=== PATIENT | male | born 1950 | race Caucasian/White ===

== ENCOUNTER 2018-03-05 03:18 | Emergency (ER) | payer OTHER ==
[2018-03-05] MEDS ORDERED: NS 1,000 ML IV ONE (03:23)
--- NOTE | 2018-03-05 03:23 | EDPHY ---
H & P Time Seen by Provider: 03/05/18 03:23 HPI/ROS: HPI CHIEF COMPLAINT: Right flank pain HISTORY OF PRESENT ILLNESS: Very pleasant 67-year-old male, history of kidney stones, and coronary disease without stents, presents emergency room with right flank right lower quadrant pain sudden onset rather sharp stabbing started 2:00 a.m.. It is now 3:30 a.m.. Associated nausea vomiting with this. History of kidney stones in feels very similar. Past Medical History: Coronary disease, kidney stone Past Surgical History: Abdominal surgery in the past cyst removal. 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 Family History: Noncontributory ROS REVIEW OF SYSTEMS: 10 Systems were reviewed and negative with the exception of the elements mentioned in the history of present illness. Exam Constitutional triage nursing summary reviewed, vital signs reviewed, awake/ alert. Eyes normal conjunctivae and sclera, EOMI, PERRLA. HENT normal inspection, atraumatic, moist mucus membranes, no epistaxis, neck supple/ no meningismus, no raccoon eyes. Respiratory clear to auscultation bilaterally, normal breath sounds, no respiratory distress, no wheezing. Cardiovascular rate normal, regular rhythm, no murmur, no edema, distal pulses normal. Gastrointestinal soft, non-tender, no rebound, no guarding, normal bowel sounds, no distension, no pulsatile mass. Genitourinary no CVA tenderness. Musculoskeletal no midline vertebral tenderness, full range of motion, no calf swelling, no tenderness of extremities, no meningismus, good pulses, neurovascularly intact. Skin pink, warm, & dry, no rash, skin atraumatic. Neurologic awake, alert and oriented x 3, AAOx3, moves all 4 extremities equally, motor intact, sensory intact, CN II-XII intact, normal cerebellar, normal vision, normal speech. Psychiatric normal mood/affect. Heme/Lymph/Immune no lymphadenopathy. Differential diagnosis includes but is not limited to and in no particular order : Bowel obstruction, appendicitis, gallbladder disease, diverticulitis, colitis , enteritis, perforated viscus, gastritis, GERD, esophagitis, urinary tract infection, pyelonephritis, kidney stones Medical Decision Making: Plan for this patient IV establishment IV fluid bolus , IV fentanyl for pain control, CT scan abdomen pelvis without contrast for right-sided flank pain. Urinalysis. Basic blood work. Re-evaluate. Will give Toradol if creatinine is normal. Re-evaluation: CT scan abdomen pelvis without contrast for right-sided flank pain shows a 6 x 5 x 4 distal right UVJ stone. Called to me by Dr. Wilder. 0505: Reviewed patient's workup including blood work, urinalysis, CT scan. Went over the patient had a kidney stone. Distal ureter. Have given a referral to Urology. Prescription provided for Flomax, [place], Zofran. Return precautions discussed with the patient. At 5:45 a.m. The patient is feeling comfortable. No pain. Resting comfortably. Received IV Dilaudid, IV Toradol. Feeling much better. Would like to go home. Return precautions discussed. Source: Patient Constitutional: Initial Vital Signs Temperature (C) 36.8 C 03/05/18 03:25 Heart Rate 69 03/05/18 03:25 Respiratory Rate 18 03/05/18 03:25 Blood Pressure 158/98 H 03/05/18 03:25 O2 Sat (%) 97 03/05/18 03:25 O2 Delivery Mode Room Air Allergies/Adverse Reactions: No Known Allergies Allergy (Unverified 04/27/10 11:26) Home Medications: Medication Instructions Recorded Tamsulosin HCl [Flomax] 0.4 mg PO DAILY #5 cap 04/27/10 Red Yeast Rice 05/06/11 Hydrocodone/APAP 5/325 [[place] 1 - 2 tab PO Q4H PRN #10 tab 03/05/18 5/325] Ondansetron HCl [Zofran] 4 mg PO Q4-6PRN PRN #10 tablet 03/05/18 Tamsulosin HCl [Flomax] 0.4 mg PO DAILY #10 cap 03/05/18 Medical Decision Making - Data Points Laboratory Results: Laboratory Results 03/05/18 03:30 03/05/18 03:30 03/05/18 03/05/18 03/05/18 05:27 05:00 03:30 WBC RBC Hgb Hct MCV MCH MCHC RDW Plt Count MPV Neut % (Auto) Lymph % (Auto) [place] % (Auto) Eos % (Auto) Baso % (Auto) Nucleat RBC Rel Count Absolute Neuts (auto) Absolute Lymphs (auto) Absolute Monos (auto) Absolute Eos (auto) Absolute Basos (auto) Absolute Nucleated RBC Immature Gran % Immature Gran # PT INR APTT VBG Lactic Acid 1.4 mmol/L mmol/L (0.7-2.1) Sodium 141 mEq/L mEq/L (135-145) Potassium 3.8 mEq/L mEq/L (3.3-5.0) Chloride 110 mEq/L mEq/L (97-110) Carbon Dioxide 25 mEq/l mEq/l (22-31) Anion Gap 6 mEq/L L mEq/L (8-16) BUN 24 mg/dL H mg/dL (7-23) Creatinine 1.0 mg/dL mg/dL (0.7-1.3) Estimated GFR > 60 Glucose 119 mg/dL H mg/dL (70-100) Calcium 9.3 mg/dL mg/dL (8.5-10.4) Total Bilirubin 0.5 mg/dL mg/dL (0.1-1.4) Conjugated Bilirubin 0.1 mg/dL mg/dL (0.0-0.5) Unconjugated Bilirubin 0.4 mg/dL mg/dL (0.0-1.1) AST 26 IU/L IU/L (17-59) ALT 35 IU/L IU/L (21-72) Alkaline Phosphatase 53 IU/L IU/L (38-126) Total Protein 6.2 g/dL L g/dL (6.3-8.2) Albumin 3.9 g/dL g/dL (3.5-5.0) Lipase 223 IU/L IU/L (23-300) Urine Color Pending Urine Appearance Pending Urine pH Pending Ur Specific [place] Pending Urine Protein Pending Urine Ketones Pending Urine Blood Pending Urine Nitrate Pending Urine Bilirubin Pending Urine Urobilinogen Pending Ur Leukocyte Esterase Pending Urine Glucose Pending 03/05/18 03/05/18 03:30 03:30 WBC 5.48 10^3/uL 10^3/uL (3.80-9.50) RBC 4.69 10^6/uL 10^6/uL (4.40-6.38) Hgb 14.6 g/dL g/dL (13.7-17.5) Hct 41.9 % % (40.0-51.0) MCV 89.3 fL fL (81.5-99.8) MCH 31.1 pg pg (27.9-34.1) MCHC 34.8 g/dL g/dL (32.4-36.7) RDW 13.2 % % (11.5-15.2) Plt Count 199 10^3/uL 10^3/uL (150-400) MPV 9.9 fL fL (8.7-11.7) Neut % (Auto) 46.0 % % (39.3-74.2) Lymph % (Auto) 35.0 % % (15.0-45.0) [place] % (Auto) 15.0 % H % (4.5-13.0) Eos % (Auto) 3.1 % % (0.6-7.6) Baso % (Auto) 0.7 % % (0.3-1.7) Nucleat RBC Rel Count 0.0 % % (0.0-0.2) Absolute Neuts (auto) 2.52 10^3/uL 10^3/uL (1.70-6.50) Absolute Lymphs (auto) 1.92 10^3/uL 10^3/uL (1.00-3.00) Absolute Monos (auto) 0.82 10^3/uL H 10^3/uL (0.30-0.80) Absolute Eos (auto) 0.17 10^3/uL 10^3/uL (0.03-0.40) Absolute Basos (auto) 0.04 10^3/uL 10^3/uL (0.02-0.10) Absolute Nucleated RBC 0.00 10^3/uL 10^3/uL (0-0.01) Immature Gran % 0.2 % % (0.0-1.1) Immature Gran # 0.01 10^3/uL 10^3/uL (0.00-0.10) PT 12.2 SEC SEC (12.0-15.0) INR 0.88 (0.83-1.16) APTT 23.3 SEC SEC (23.0-38.0) VBG Lactic Acid Sodium Potassium Chloride Carbon Dioxide Anion Gap BUN Creatinine Estimated GFR Glucose Calcium Total Bilirubin Conjugated Bilirubin Unconjugated Bilirubin AST ALT Alkaline Phosphatase Total Protein Albumin Lipase Urine Color Urine Appearance Urine pH Ur Specific [place] Urine Protein Urine Ketones Urine Blood Urine Nitrate Urine Bilirubin Urine Urobilinogen Ur Leukocyte Esterase Urine Glucose Medications Given: Discontinued Medications Fentanyl (Sublimaze) 50 mcg IVP EDNOW ONE Stop: 03/05/18 03:38 Last Admin: 03/05/18 03:44 Dose: 50 mcg Sodium Chloride (Ns) 1,000 mls @ 0 mls/hr IV EDNOW ONE; Wide Open PRN Reason: Protocol Stop: 03/05/18 03:24 Last Admin: 03/05/18 03:44 Dose: 1,000 mls Ketorolac Tromethamine (Toradol) 15 mg IVP EDNOW ONE Stop: 03/05/18 04:02 Last Admin: 03/05/18 04:31 Dose: 15 mg Ondansetron HCl (Zofran) 4 mg IVP EDNOW ONE Stop: 03/05/18 03:38 Last Admin: 03/05/18 03:45 Dose: 4 mg Departure - Departure Disposition: Home, Routine, Self-Care Clinical Impression: Kidney stone on right side Condition: Good Instructions: Kidney Stones (ED) Additional Instructions: 1. Drink lots of fluids. 2. Return to the emergency room if you have any worsening symptoms questions or concerns. Referrals: Guille Webb MD [Primary Care Provider] - As per Instructions Jazz Chinchilla MD [Medical Doctor] - As per Instructions Prescriptions: Hydrocodone/APAP 5/325 [[place] 5/325] 1 - 2 tab PO Q4H PRN #10 tab PRN Reason: Pain, Moderate Ondansetron HCl [Zofran] 4 mg PO Q4-6PRN PRN #10 tablet PRN Reason: Nausea/Vomiting, Use 1st Tamsulosin HCl [Flomax] 0.4 mg PO DAILY #10 cap
[2018-03-05] MEDS ORDERED: fentaNYL 100 MCG/2 ML INJ IVP ONE (03:37)
[2018-03-05] MEDS ORDERED: ONDANSETRON 4 MG/2 ML VIAL IVP ONE (03:37)
[2018-03-05 03:46] LABS: PLATELET COUNT 199 10^3/uL (150-400)
[2018-03-05 03:55] LABS: INR 0.88 (0.83-1.16); PROTIME(PATIENT) 12.2 SEC (12.0-15.0)
[2018-03-05] MEDS ORDERED: KETOROLAC 15 MG/1 ML SDV IVP ONE (04:01)
[2018-03-05 06:29] VITALS: BP 120/78
== END 2018-03-05 06:28 | disposition home or self-care (01) ==
DX: N20.1 Calculus of ureter (principal); R11.2 Nausea with vomiting, unspecified; E86.9 Volume depletion, unspecified
CPT/HCPCS: 74176; 96361; 96374; 96375; 99285; J1885; J2405; J3010

== ENCOUNTER → 2018-04-05 | Outpatient (CLI) | payer OTHER | LOC: FIMAGING 12:39 | PROVIDERS: ATTEND Specialist | DX: N20.0 Calculus of kidney (principal); I87.8 Other specified disorders of veins ==

== ENCOUNTER → 2018-04-13 | Outpatient (CLI) | payer OTHER, MEDICARE ==
[~2018-04-13] MED LIST: IOPAMIDOL (ISOVUE-300) 150 ML BTL ONE
== END ==
LOC: FIMAGING 15:49
PROVIDERS: ATTEND Specialist
DX: N20.1 Calculus of ureter (principal); N28.9 Disorder of kidney and ureter, unspecified; K87 Disorders of gallbladder, biliary tract and pancreas in diseases classified elsewhere; N40.0 Benign prostatic hyperplasia without lower urinary tract symptoms
CPT/HCPCS: 74178; Q9967

== ENCOUNTER 2018-09-23 11:16 | Emergency (ER) | payer OTHER, MEDICARE ==
--- NOTE | 2018-09-23 11:24 | EDPHY ---
General Time Seen by Provider: 09/23/18 11:24 Narrative: CLINICAL IMPRESSION: Acute Urinary retention ASSESSMENT/PLAN: Patient is a 67 year old male with a history of known bladder stone and BPH, presents with acute urinary retention. Patient is afebrile, he is uncomfortable appearing however not toxic appearing. His vitals were reviewed and no findings to suggest sepsis or systemic illness. Patient's abdomen was soft, mild tenderness in the suprapubic region without rebound or guarding; no evidence of a surgical abdomen. Bladder scan revealed >350 mL PRV on initial exam. History and physical examination today is consistent with acute urinary retention. Patient was treated with a [place] catheter and a large amount of urine was returned- >650 mL clear yellow urine. UA with no blood, leuks, nitrites or bacteria. There is no evidence of infected stone, UTI or pyelonephritis. I suspect his symptoms today are secondary to intermittently obstructing stone at bladder neck. All symptoms resolved with the Medina catheter placement. >650 ml clear yellow urine immediately returned. He will keep medina in place until follow-up with his Urologist Dr. Banda. On repeat exam he is well appearing, reports he is feeling much better. His abdomen is soft with no tenderness to palpation. Conservative return precautions discussed - he will return for fever, recurrent abdominal pain, recurrent urinary retention or for any other concerning symptom. Patient verbalizes understanding and is in agreement with plan. DIFFERENTIAL DX: Differential includes but not limited to BPH, urethral obstruction, bladder neck obstruction, UTI CHIEF COMPLAINT: Acute Urinary retention HPI: Patient is a 67 year old male with a known bladder stone presents with acute urinary retention. Patient reports kidney stone diagnosis this past June, he believes that he passed the stone at that time. He reported passed the stone into his bladder in June and this has been followed since primarily by his PCP. He believes the stone in his bladder is approximately 5 mm. 12 hours ago he started to experience difficulty with urination, significantly decreased output which is worsening as well as feeling of urgency and frequency. He is experiencing some penile pain at times however denies dysuria or hematuria. He is experiencing mild suprapubic discomfort, denies significant abdominal pain. He denies and flank pain. Appetite is normal, he has had no fever, nausea, vomiting, CP or SOB. BM are normal. PMH: BPH, renal colic, known bladder stone Family History: Not contributory Social History: Denies smoking REVIEW OF SYSTEMS: All other systems negative Constitutional: No fever, no chills, appetite change. Eyes: No discharge, vision change ENT: No sore throat, congestion, ear pain. Cardiovascular: No chest pain, no palpitations. Respiratory: No cough, no shortness of breath. Gastrointestinal: Suprapubic pain, No vomiting or diarrhea. Genitourinary: Urinary retention. No hematuria, dysuria, flank pain, pelvic pain. Musculoskeletal: No back pain, joint swelling, joint pain, myalgias. Skin: No rashes, color change. Neurological: No headache, dizziness, weakness. PHYSICAL EXAM: General Appearance: Alert, uncomfortable appearing however not toxic appearing. HENT: Normocephalic, atraumatic. Bilateral external ears are normal. Bilateral tympanic membranes are normal with pearly silva reflex. Nares are clear, mucosa is pink. Oropharynx is clear, uvula is midline. There is no tonsillar enlargement or exudate. The dentition is normal. Eyes: PERRLA, EOMI. Conjunctiva pink, no pallor or injection. Neck: Supple, nontender, no lymphadenopathy, no midline pain, FROM. Respiratory: There are no retractions, lungs are clear to auscultation. Cardiac: Regular rate and rhythm, no murmurs or gallops. Gastrointestinal: Abdomen is soft, bowel sounds normal, no masses/hernia. Mild suprapubic tenderness to palpation, no rigidity, guarding or focal peritoneal findings. Neurological: Alert and oriented x 3, CN 2-12 grossly intact, normal gait no ataxia, DTR's intact, normal sensation and strength. Skin: Warm, dry, no rashes, no nodules on palpation. Musculoskeletal: Extremities are symmetrical, full range of motion, no tenderness, deformity, swelling, or erythema. Psychiatric: Patient is oriented X 3, there is no agitation. MEDICAL DECISION MAKING: Patient was seen independently. Secondary supervising physician at time of evaluation was Dr. Faust, he did not evaluate this patient. Diagnosis: Acute urinary retention. New, requires workup Summary: See Assessment and Plan for summary of ED visit Clinical lab tests: ordered / reviewed. Independent visualization of images, tracing, or specimens: Yes. Decision to obtain medical records or history from someone other than the patient: No Review / Summarize previous medical records: Yes Discussed patient with another provider: Yes, Dr. Faust Patient Progress: Stable, discharge. - History Smoking Status: Never smoked - Objective Vital Signs: Initial Vital Signs Temperature (C) 36.4 C 09/23/18 11:20 Heart Rate 69 09/23/18 11:20 Respiratory Rate 18 09/23/18 11:20 Blood Pressure 129/84 H 09/23/18 11:20 O2 Sat (%) 99 09/23/18 11:20 O2 Delivery Mode Room Air Allergies/Adverse Reactions: No Known Allergies Allergy (Unverified 04/27/10 11:26) Home Medications: Medication Instructions Recorded Cardura 09/23/18 Welchol 09/23/18 Laboratory Results: 09/23/18 11:30 Urine Color YELLOW Urine Appearance CLEAR Urine pH 6.0 (5.0-7.5) Ur Specific [place] 1.011 (1.002-1.030) Urine Protein NEGATIVE (NEGATIVE) Urine Ketones NEGATIVE (NEGATIVE) Urine Blood NEGATIVE (NEGATIVE) Urine Nitrate NEGATIVE (NEGATIVE) Urine Bilirubin NEGATIVE (NEGATIVE) Urine Urobilinogen NEGATIVE EU EU (0.2-1.0) Ur Leukocyte Esterase NEGATIVE (NEGATIVE) Urine Glucose NEGATIVE (NEGATIVE) Medications Given: Discontinued Medications Lidocaine (Uroject Lidocaine 2% Jelly) 20 ml UR EDNOW ONE Stop: 09/23/18 12:22 Last Admin: 09/23/18 12:27 Dose: 20 ml Departure - Departure Disposition: Home, Routine, Self-Care Clinical Impression: Urinary retention Condition: Good Instructions: Urinary Retention in Men (ED) Additional Instructions: DISCHARGE INSTRUCTIONS FROM YOUR DOCTOR Thank you for visiting our emergency department today. Please keep in mind that discharge from the emergency department does not mean that there is nothing wrong - it simply means that we have not identified an emergency condition that requires further evaluation or treatment in the hospital. Please follow-up with Dr. Melouk at out by neurology as we discussed. Your urine showed no evidence of blood or infection. Please keep your Medina in place until follow-up with Urology. Return to the emergency department for fever, nausea, vomiting, abdominal pain or for any other concerning symptom. People present with illnesses and injuries in different ways, and it is always possible that we have missed something. You may always return for re-evaluation if symptoms worsen or if they are not improving or if you develop new/different symptoms. Again, thank you for choosing our emergency department. We hope that you feel better. Referrals: Guille Webb MD [Primary Care Provider] - As per Instructions Leslie Banda MD [Medical Doctor] - As per Instructions (Please call Urology as we discussed tomorrow morning to schedule follow-up.)
[2018-09-23] MEDS ORDERED: LIDOCAINE 2% JELLY 20 ML (UROJECT) UR ONE (12:21)
[2018-09-23 13:39] VITALS: BP 124/81
== END 2018-09-23 13:39 | disposition home or self-care (01) ==
PROC: 0T9B70Z Drainage of Bladder with Drainage Device, Via Natural or Artificial Opening (ICD-10-PCS; principal; 2018-09-23)
PROC: 4A0D7LZ Measurement of Urinary Volume, Via Natural or Artificial Opening (ICD-10-PCS; 2018-09-23)
DX: R33.9 Retention of urine, unspecified (principal)

== ENCOUNTER 2018-10-11 07:26 | Observation (INO) | payer OTHER, MEDICARE ==
[2018-10-11] MEDS ORDERED: levOFLOXACIN 500 MG/DEXTROSE 100 ML IV ONE (07:42)
[2018-10-11] MEDS ORDERED: levOFLOXACIN 500 MG/DEXTROSE/100 ML BAG IV ONE (08:04)
[2018-10-11] MEDS ORDERED: LR 1,000 ML IV SCH (08:30)
--- NOTE | 2018-10-11 08:33 | PDHPUP ---
History & Physical Update H&P update statement: This history and physical update is based on an assessment of the patient which was completed after admission or registration (within 24 hours), but prior to the surgery/procedure. H&P update: no change in patient's condition since H&P completed
[2018-10-11] MEDS ORDERED: MIDAZOLAM 2 MG/2 ML VIAL ONE (08:58)
[2018-10-11] MEDS ORDERED: MIDAZOLAM 2 MG/2 ML VIAL IVP ONE (08:59)
--- NOTE | 2018-10-11 08:59 | PDANEPAE ---
ANE Past Medical History - Cardiovascular History Hx Hypertension: No Hx Arrhythmias: No Hx Chest Pain: No Hx Coronary Artery / Peripheral Vascular Disease: No Hx CHF / Valvular Disease: No Hx Palpitations: No - Pulmonary History Hx COPD: No Hx Asthma/Reactive Airway Disease: No Hx Recent Upper Respiratory Infection: No Hx Oxygen in Use at Home: No Hx Sleep Apnea: No Sleep Apnea Screening Result - Last Documented: Negative - Neurologic History Hx Cerebrovascular Accident: No Hx Seizures: No Hx Dementia: No - Endocrine History Hx Diabetes: No Hypothyroid: No Hyperthyroid: No Obesity: no - Renal History Hx Renal Disorders: No Renal History Comment: KIDNEY STONES - Liver History Hx Hepatic Disorders: No - Neurological & Psychiatric Hx Hx Neurological and Psychiatric Disorders: No - Cancer History Hx Cancer: No - Congenital Disorder History Hx Congenital Disorders: No - GI History GERD: no Hx Gastrointestinal Disorders: No Gastrointestinal History Comment: ULCERS/GASTRITIS IN PAST - Other Health History Other Health History: NEG - Chronic Pain History Chronic Pain: No - Surgical History Prior Surgeries: T & A. LITHOTRIPSY. OSTEOCHONDROMA L DISTAL FEMUR. PARAGANGLIONA - ABD. C SPINE DISC REPLACEMENTS. LASER TURP ANE Review of Systems Review of Systems: - Exercise capacity Exercise capacity: >=4 METS METS (RN): 6 METS ANE Patient History - Allergies Allergies/Adverse Reactions: No Known Allergies Allergy (Verified 10/05/18 13:32) - Home Medications Home Medications: Colesevelam HCl [Welchol (*)] 3 tab PO BID 09/23/18 [Last Taken 10/10/18] Tamsulosin HCl [Flomax 0.4 MG (*)] 0.4 mg PO DAILY 10/03/18 [Last Taken 10/10/18 ] Multivitamins W-Minerals [Thera M Plus Tablet (*)] 1 each PO DAILY 10/05/18 [ Last Taken 10/09/18] - NPO status NPO Since - Liquids (Date): 10/10/18 NPO Since - Liquids (Time): 22:00 NPO Since - Solids (Date): 10/10/18 NPO Since - Solids (Time): 19:30 - Anes Hx Hx Anesthesia Complications (with details): difficulty coming out after acdf - Smoking Hx Smoking Status: Never smoked - Alcohol Use Alcohol Use: Rarely - Family Anes Hx Family Anes Hx: neg - N/A Family Hx Anesthesia Complications: NEG ANE Labs/Vital Signs - Vital Signs Blood Pressure: 128/72 Heart Rate: 64 Respiratory Rate: 18 O2 Sat (%): 96 Height: 182.88 cm Weight: 79.379 kg ANE Physical Exam - Airway Neck exam: FROM Mallampati Score: Class 2 Mouth exam: normal dental/mouth exam - Pulmonary Pulmonary: no respiratory distress, no rales or rhonchi, clear to auscultation - Cardiovascular Cardiovascular: regular rate and rhythym, no murmur, rub, or gallop - ASA Status ASA Status: II ANE Anesthesia Plan Anesthesia Plan: spinal Total IV Anesthesia: No
[2018-10-11] MEDS ORDERED: fentaNYL 100 MCG/2 ML INJ ONE (09:03)
[2018-10-11] MEDS ORDERED: PROPOFOL/EMULSION 500 MG/50 ML BOTTLE IV ONE (09:03)
[2018-10-11] MEDS ORDERED: LIDOCAINE 2% 2 ML INJ ONE ×2 (09:03)
[2018-10-11] MEDS ORDERED: BUPIVACAINE/DEXTROSE 7.5MG/ML 2 ML SPINAL AMP SP ONE (09:07)
[2018-10-11] MEDS ORDERED: ONDANSETRON 4 MG/2 ML VIAL IVP PRN ×2 (09:52→11:34)
[2018-10-11] MEDS ORDERED: PROMETHAZINE HCL 25 MG/ML INJ IVP PRN ×2 (09:52→11:34)
[2018-10-11] MEDS ORDERED: LR 500 ML IV PRN (09:52)
[2018-10-11] MEDS ORDERED: PHENYLEPHRINE HCL 100 MCG/ML SYR IVP PRN (09:52)
[2018-10-11] MEDS ORDERED: NALOXONE HCL 0.4 MG/ML INJ IVP PRN (09:52)
[2018-10-11] MEDS ORDERED: PHENYLEPHRINE HCL 100 MCG/ML SYR ONE (09:57)
[2018-10-11] MEDS ORDERED: PROPOFOL 200 MG/20 ML VIAL ONE (10:42)
--- NOTE | 2018-10-11 11:33 | POSTOPPROG ---
Post Op Note Date of Operation: 10/11/18 Surgeon: Leslie Banda (# [id number]) Anesthesia: Spinal Pre-op Diagnosis: BPH w/ obstruction Post-op Diagnosis: BPH w/ obstruction Procedure: TURP Findings: See op note Inf/Abcess present in the surg proc area at time of surgery?: No EBL: Minimal (25 cc) Complications: None Specimen(s): Prostate
[2018-10-11] MEDS ORDERED: HYDROCODONE/APAP 5/325 TAB PO PRN (11:34)
[2018-10-11] MEDS ORDERED: OPIUM/BELLADONNA ALKALO SUPP PR PRN (11:34)
[2018-10-11] MEDS ORDERED: ZOLPIDEM TARTRATE 5 MG TAB PO PRN (11:35)
[2018-10-11] MEDS ORDERED: D5W 1/2 NS 1,000 ML IV SCH (11:45)
[2018-10-11] MEDS ORDERED: LORazepam 0.5 MG TAB PO PRN (16:49)
[2018-10-11] MEDS: COLESEVELAM HCL 625 MG TAB PO SCH (20:15)
--- NOTE | 2018-10-11 22:22 | GOP ---
[f rep st] OPERATIVE REPORT DATE OF OPERATION: 10/11/2018 SURGEON: Leslie Banda MD ANESTHESIA: Spinal. PREOPERATIVE DIAGNOSIS: BPH with urinary obstruction. POSTOPERATIVE DIAGNOSIS: BPH with urinary obstruction. PROCEDURE PERFORMED: Transurethral prostate resection. FINDINGS: Significant BPH with very large intravesical median lobe. SPECIMENS: Prostate tissue. ESTIMATED BLOOD LOSS: 25 cc. INDICATIONS: This gentleman has a longstanding history of BPH with urinary obstruction. He presents for operative management at this time. The indications for the procedures, as well as potential risks and complications were discussed with the patient preoperatively. He appeared to understand, his questions were answered, and he wished to proceed. Written informed surgical consent was thereafter obtained. DESCRIPTION OF PROCEDURE: The patient was brought to the operating room and administered spinal anesthesia. He was carefully placed in the dorsal lithotomy position on the cystoscopic table utilizing Jose Guadalupe stirrups. The genital area was sterilely prepped with Betadine scrub and paint then draped in usual sterile fashion. Cystoscopy was performed with 30-degree and 70-degree lenses through a 22-Wallisian sheath. Anterior urethra revealed no abnormalities. Posterior urethra revealed mild lateral lobe BPH but with a very large intravesical median lobe that obliterated visualization of the trigone. The median lobe extended several centimeters into the bladder towards the posterior aspect. The bladder was moderately to heavily trabeculated, but without areas of abnormal erythema, tumors, or foreign bodies. Ureteral orifices were normal in regards to shape and position along the trigone. The cystoscope was removed and the 26-Wallisian resectoscopic sheath inserted, along with Guevara resectoscope and a standard resecting loop. Using continuous flow normal saline irrigation, bipolar resection of the prostate was performed. The median lobe was completely and fully resected, followed by some of the residual lateral lobe and anterior tissue. Resection was performed down to the level of capsular fibers, but did not extend distally beyond the perceived location of the verumontanum. The verumontanum was not easily seen and likely had been previously ablated at time of prior laser prostatectomy many years ago. At the conclusion of the resection process, all the prostate tissue was removed from the bladder using an [employer] evacuator. A button electrode was also used to fulgurate the surface of the resected prostate for postoperative hemostasis. The instruments were removed and a 22-Wallisian 3-way Garzon catheter inserted with the use of a catheter guide. 40 cc of sterile fluid was placed in the balloon. The catheter irrigated manually and the return was light to medium pink. The catheter was initially placed on traction gauze with a 4 x 4. It was then connected to bag drainage. The patient was awakened, transferred to his bed, then taken to the recovery room. He tolerated the procedure well overall. COMPLICATIONS: None. DISPOSITION: He was transferred to the recovery room in stable condition. /[id number]/MODL MTDD
[2018-10-12] MEDS: COLESEVELAM HCL 625 MG TAB PO SCH (10:47)
--- NOTE | 2018-10-12 13:26 | ASMTLACE ---
[facility] Length of stay for Answers: 1 day current admission Acuity / Level of Answers: No Care: Did the patient have an inpatient admission? # of Emergency department Answers: 1-2 visits in the last 6 months Score: 2 Date Signed: 10/12/2018 01:26 PM Electronically Signed By:Megan Ojeda RN
[2018-10-12 18:17] VITALS: BP 113/87
== END 2018-10-12 18:59 | disposition home or self-care (01) ==
LOC: F3N 07:26 → F1N 11:52
PROVIDERS: ADMIT Specialist; ATTEND Specialist
PROC: 0VB08ZZ Excision of Prostate, Via Natural or Artificial Opening Endoscopic (ICD-10-PCS; principal; 2018-10-11 08:45)
DX: N40.1 Benign prostatic hyperplasia with lower urinary tract symptoms (principal); R33.9 Retention of urine, unspecified; E72.53 Primary hyperoxaluria; Z87.442 Personal history of urinary calculi
CPT/HCPCS: 52601; J1956; J2250; J2370; J2704; J3010